=== PATIENT | female | born 1965 | race African-American/Black ===

== ENCOUNTER 2016-07-04 19:52 | Emergency (ER) | payer MEDICAID ==
[~2016-07-04] VITALS: Ht 162.6 cm; Wt 82.0 kg
[2016-07-04 21:31] VITALS: BP 108/55
== END 2016-07-05 | disposition left against medical advice (07) ==
LOC: ER 20:04
DX: R51 Headache (principal); Z53.21 Procedure and treatment not carried out due to patient leaving prior to being seen by health care provider

== ENCOUNTER 2016-11-17 16:22 | Emergency (ER) | payer MEDICAID ==
[~2016-11-17] VITALS: Ht 172.7 cm; Wt 85.0 kg
[2016-11-17] MEDS ORDERED: LIDOCAINE HCL 1% 20ML VIAL (Pyxis) INJ MC ONE (23:15)
[2016-11-17] MEDS ORDERED: MORPHINE SULFATE 4 MG/ML CPJ (NOT FOR IM USE) IV ONE (23:15)
[2016-11-17] MEDS ORDERED: BACITRACIN ZINC OINT UDPKT TOP ONE (23:15)
[2016-11-18] MEDS ORDERED: BACITRACIN ZINC OINT UDPKT TOP ONE (02:00)
[2016-11-18 02:10] VITALS: BP 122/71
== END 2016-11-18 02:10 | disposition home or self-care (01) ==
LOC: ER 17:34
DX: S61.412A Laceration without foreign body of left hand, initial encounter (principal); W26.0XXA Contact with knife, initial encounter; Y93.89 Activity, other specified; Y92.89 Other specified places as the place of occurrence of the external cause; Y99.8 Other external cause status
CPT/HCPCS: 12002; 73130; 99284; J3490; Z7610; J2270

== ENCOUNTER 2016-11-20 11:13 | Emergency (ER) | payer MEDICAID ==
[~2016-11-20] VITALS: Ht 170.2 cm; Wt 86.0 kg
[2016-11-20 15:12] VITALS: BP 138/47
== END 2016-11-20 15:39 | disposition home or self-care (01) ==
LOC: ER 11:13
DX: Z48.02 Encounter for removal of sutures (principal)
CPT/HCPCS: 99282

== ENCOUNTER 2016-11-24 06:19 | Emergency (ER) | payer MEDICAID ==
[~2016-11-24] VITALS: Ht 167.6 cm; Wt 86.0 kg
[2016-11-24 09:19] VITALS: BP 102/52
== END 2016-11-24 09:25 | disposition home or self-care (01) ==
LOC: ER 06:19
DX: S61.215D Laceration without foreign body of left ring finger without damage to nail, subsequent encounter (principal); S61.217D Laceration without foreign body of left little finger without damage to nail, subsequent encounter; X58.XXXD Exposure to other specified factors, subsequent encounter; Y92.89 Other specified places as the place of occurrence of the external cause; Y99.8 Other external cause status
CPT/HCPCS: 99281; Z7610